=== PATIENT | female | born 1975 | race Caucasian/White ===

== ENCOUNTER 2016-06-14 11:06 | Emergency (ER) | payer MEDICAID | END 2016-06-14 13:32 | disposition home or self-care (01) | DX: E04.1 Nontoxic single thyroid nodule (principal); F17.200 Nicotine dependence, unspecified, uncomplicated ==

== ENCOUNTER 2016-07-30 11:59 | Outpatient (CLI) | payer MEDICAID ==
--- NOTE | 2016-07-30 14:54 | XRAY Report ---
THREE-VIEW CERVICAL SPINE: 07/30/2016 CLINICAL INDICATION: Pain. FINDINGS: AP, lateral, odontoid views of the cervical spine demonstrate mild degenerative disk and f acet disease, with disk space narrowing worst at C6-7. There is no evidence of fracture or subluxati on. The prevertebral soft tissues are unremarkable. IMPRESSION: MILD DEGENERATIVE CHANGES. JOB #: [id number] EXT JOB #:[id number]
--- NOTE | 2016-07-30 14:56 | XRAY Report ---
THREE-VIEW LUMBAR SPINE: 07/30/2016 CLINICAL INDICATION: Pain. FINDINGS: AP, lateral, coned-down views of the lumbar spine demonstrate dextroscoliosis, measuring 1 7 degrees between the pedicles of L1 and L4. There is no evidence of fracture. The disk spaces are preserved. IMPRESSION: MILD DEXTROSCOLIOSIS. NO EVIDENCE OF FRACTURE. JOB #: [id number] EXT JOB #:[id number]
--- NOTE | 2016-07-30 14:56 | XRAY Report ---
TWO-VIEW THORACIC SPINE: 07/30/2016 CLINICAL INDICATION: Back pain. FINDINGS: Frontal and lateral views of the thoracic spine demonstrate minimal S-shaped scoliosis. T here is no evidence of compression fracture. The disk spaces are preserved. IMPRESSION: MINIMAL S-SHAPED SCOLIOSIS. JOB #: [id number] EXT JOB #:[id number]
--- NOTE | 2016-07-30 18:36 | Ultrasound Report ---
THYROID ULTRASOUND: 07/30/2016 CLINICAL INDICATION: Palpable right thyroid nodule. TECHNIQUE: Real-time scanning was performed with outbound telemarketing representative static images obtained. FINDINGS: The right lobe measures 7.6 x 2.6 x 2.5 cm, and the left lobe measures 5.3 x 2.2 x 1.5 cm. The isthmus measures 2 mm. There are multiple confluent bilateral nodules. The palpable abnormali ty correlates with a hypoechoic nodule measuring approximately 4.3 x 2.8 x 2.1 cm. Multiple mixed ec hogenicity nodules, some with cystic components, are spread throughout both lobes. No adenopathy is appreciated. IMPRESSION: MULTINODULAR GOITER, WITH MULTIPLE CONFLUENT NODULES PRESENT. JOB #: [id number] EXT JOB #:[id number]
== END 2016-07-30 12:00 | disposition home or self-care (01) ==
LOC: DI 11:59
PROVIDERS: ATTEND Family Medicine
DX: E04.2 Nontoxic multinodular goiter (principal); M50.30 Other cervical disc degeneration, unspecified cervical region; M47.892 Other spondylosis, cervical region; M41.86 Other forms of scoliosis, lumbar region; M41.84 Other forms of scoliosis, thoracic region
CPT/HCPCS: 72040; 72070; 72100; 76536

== ENCOUNTER 2016-10-04 09:34 | Emergency (ER) | payer MEDICAID ==
[2016-10-04] MEDS ORDERED: IBUPROFEN 800 MG TABLET PO STA (10:09)
[2016-10-04] MEDS ORDERED: IBUPROFEN 800 MG TABLET PO ONE (10:25)
--- NOTE | 2016-10-04 10:42 | ED Physician Documentation ---
History of Present Illness - Stated complaint Stated Complaint: ANKLE PX - Chief complaint Chief Complaint: Ext Problem - History obtained from History obtained from: Patient - History of Present Illness Timing: Prior to arrival - Additonal information Additional information: Patient is a 41-year-old female who is otherwise healthy. She comes in with a complaint of right sided foot and ankle pain. The patient had an injury last night and woke up this morning with increased pain and difficulty walking on the affected right foot. She believes it was a twist type injury not a fall from height. She points to the calcaneus is being the area of injury. She has no proximal leg pain. The pain is worse with movement and better with rest. Review of systems: For pertinent positive and negatives in the review of systems please see the history of present illness, otherwise all other systems have been reviewed and are negative. Dragon disclaimer: Parts of this medical record were created using voice recognition technology. Because of the inherent limitations of this system, occasional same sounding word substitutions do occur and persist despite proofreading. Please read the document for context. Review of Systems Musculoskeletal: reports: Extremity pain, Joint pain, Pain with weight bearing. 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 - Present Medications Home Medications: Ambulatory Orders Medication Instructions Recorded Confirmed Ibuprofen 600 mg PO TID PRN #14 tablet 10/04/16 Tramadol HCl 50 mg PO Q8HR PRN #14 tablet 10/04/16 - Allergies Allergies/Adverse Reactions: Allergies Allergy/AdvReac Type Severity Reaction Status Date / Time cillins Allergy Unknown Uncoded 06/14/16 11:23 - Social History Does the pt smoke?: Yes Smoking Status: Current every day smoker Does the pt drink ETOH?: Yes Does the pt have substance abuse?: No - Immunizations Immunizations are current?: No Immunizations: TDAP >10years/unknown PD ED PE NORMAL - General General: Alert and oriented X 3, No acute distress, Well developed/nourished - HEENT HEENT: Atraumatic - Neck Neck: Supple, no meningeal sign - Cardiac Cardiac: RRR - Respiratory Respiratory: No respiratory distress, Clear bilaterally - Abdomen Abdomen: Normal bowel sounds - Extremities Extremities: Other (On examination the patient's right ankle and foot she has mild tenderness without discoloration bruising or focality of the right calcaneus. The patient's ankle and proximal lower extremity are all normal. Patient's midfoot and forefoot are palpated and are nontender) Results - Vitals Vitals: Vital Signs - 24 hr 10/04/16 09:43 Temperature 36.4 C L Heart Rate 76 Respiratory 18 Rate Blood Pressure 98/66 O2 Saturation 98 Oxygen O2 Source Room air PD MEDICAL DECISION MAKING - ED course Complexity details: reviewed old records, reviewed results ED course: Patient had isolated tenderness on the lateral aspect of the calcaneus. Based on the mechanism and physical exam I did not strongly suspect a occult calcaneus fracture. Plain films were done and are normal. Clinically the patient's foot other than the hindfoot and ankle are normal on exam. She is placed in a short leg splint for comfort crutches and will prescribe short course of pain medications as well as a note for off of work. I suspect she will do well. I did asked her to follow-up with her physician and if pain continues a calcaneus consider getting a additional x-ray in the future however my clinical suspicion for occult injury is very low. Disposition: To home Clinical impression: 1. Calcaneal contusion Departure - Departure Disposition: 01 Home, Self Care Clinical Impression: Pain in extremity, Contusion Condition: Good Instructions: Contusion Bone About Follow-Up: Donald Cabello MD [Primary Care Provider] - Prescriptions: Tramadol HCl 50 mg PO Q8HR PRN #14 tablet PRN Reason: Pain Ibuprofen 600 mg PO TID PRN #14 tablet PRN Reason: Pain Forms: Activity restrictions
--- NOTE | 2016-10-04 11:26 | XRAY Preliminary Report ---
Exam: XR Calcaneus RT IMPRESSION: Soft tissue swelling over the posterior inferior portion of the calcaneus without underly ing bone or joint abnormality. [facility] SITE ID: [id number]
--- NOTE | 2016-10-04 11:29 | XRAY Report ---
EXAM: RIGHT CALCANEUS RADIOGRAPHY, 2 VIEWS EXAM DATE: 10/04/2016 11:13 AM. CLINICAL HISTORY: Mis-step injury this morning with posterior osteo-calcaneus pain in a 41-year-old f emale COMPARISON: None. TECHNIQUE: Lateral and tangential views. FINDINGS: Bones: Normal. No fractures or bone lesions. Joints: Normal. No subluxations. Soft Tissues: Soft tissue swelling over the inferior posterior aspect of the calcaneus without soft t issue gas or foreign body. IMPRESSION: Soft tissue swelling over the posterior inferior portion of the calcaneus without underly ing bone or joint abnormality. [facility] Referring Provider Line: [phone] SITE ID: [id number]
[2016-10-04 12:27] VITALS: BP 112/52
== END 2016-10-04 12:24 | disposition home or self-care (01) ==
LOC: ED 09:34
DX: S90.31XA Contusion of right foot, initial encounter (principal); F17.200 Nicotine dependence, unspecified, uncomplicated; X50.1XXA Overexertion from prolonged static or awkward postures, initial encounter
CPT/HCPCS: 29515; 73650; 99283; A9270

== ENCOUNTER 2017-01-13 11:05 | Emergency (ER) | payer OTHER, MEDICAID ==
[2017-01-13 11:15] VITALS: BP 107/76
--- NOTE | 2017-01-13 12:43 | ED Physician Documentation ---
History of Present Illness - Stated complaint Stated Complaint: NEEDS WK RELEASE/L&I INJURY - Chief complaint Chief Complaint: General - History obtained from History obtained from: Patient - History of Present Illness Timing: How many weeks ago (1) Pain level max: 0 Pain level now: 0 - Additonal information Additional information: Patient is a 41-year-old female who sprained her left fifth toe approximately 1 week ago. States pain has now all resolved and she is feeling well. Able to perform all of her daily activities without any restrictions. Requested a note to return to work. 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 - Present Medications Home Medications: Ambulatory Orders Medication Instructions Recorded Confirmed Meloxicam [Mobic] 15 mg PO DAILY PRN #20 tablet 01/06/17 01/13/17 - Allergies Allergies/Adverse Reactions: Allergies Allergy/AdvReac Type Severity Reaction Status Date / Time cillins Allergy Unknown Uncoded 06/14/16 11:23 - Social History Does the pt smoke?: Yes Smoking Status: Current every day smoker Does the pt drink ETOH?: Yes Does the pt have substance abuse?: No - Immunizations Immunizations are current?: No Immunizations: TDAP >10years/unknown PD ED PE NORMAL - Vitals Vital signs reviewed: Yes - General General: Alert and oriented X 3, No acute distress - Derm Derm: Warm and dry - Extremities Extremities: Other (normal exam of the L foot. normal gait. NVI. normal skin) - Neuro Neuro: Alert and oriented X 3 Results - Vitals Vitals: Vital Signs - 24 hr 01/13/17 11:12 Temperature 36.8 C Heart Rate 80 Respiratory 18 Rate Blood Pressure 107/76 O2 Saturation 100 Oxygen O2 Source Room air PD MEDICAL DECISION MAKING - ED course Complexity details: considered differential, d/w patient ED course: Patient appears to have recovered from her toe sprain. We will released back to full duty work. I will follow-up with her doctor for further evaluation and care. Patient counseled regarding signs and symptoms for which I believe and urgent re-evaluation would be necessary. Patient with good understanding of and agreement to plan and is comfortable going home at this time This document was made in part using voice recognition software. While efforts are made to proofread this document, sound alike and grammatical errors may occur. Departure - Departure Disposition: 01 Home, Self Care Clinical Impression: Sprain of toe, fifth, left Qualifiers: Encounter type: subsequent encounter Qualified Code(s): S93.505D - Unspecified sprain of left lesser toe(s), subsequent encounter Condition: Good Follow-Up: Donald Cabello MD [Primary Care Provider] - As Needed Comments: Return if you worsen. Forms: Activity restrictions
== END 2017-01-13 12:47 | disposition home or self-care (01) ==
LOC: ED 11:05
DX: S93.505D Unspecified sprain of left lesser toe(s), subsequent encounter (principal); X58.XXXD Exposure to other specified factors, subsequent encounter; F17.200 Nicotine dependence, unspecified, uncomplicated
CPT/HCPCS: 99282; 99283

== ENCOUNTER 2017-08-14 13:56 | Outpatient (CLI) | payer MEDICAID | END 2017-08-14 13:57 | disposition critical access hospital (66) | LOC: EMS 13:56 | PROVIDERS: ATTEND Surgery | DX: R10.9 Unspecified abdominal pain (principal); R31.9 Hematuria, unspecified | CPT/HCPCS: A0425; A0429 ==

== ENCOUNTER 2017-08-14 14:15 | Emergency (ER) | payer MEDICAID ==
[2017-08-14 14:58] LABS: BASOPHILS % (AUTO) 0.9 %; EOSINOPHILS % (AUTO) 0.2 %; HGB - HEMOGLOBIN 13.2 g/dL (12.0-16.0); MEAN CORPUSCULAR HEMOGLOBIN 31.6 pg (27.0-31.0); MEAN CORPUSCULAR HGB CONC 32.8 g/dL (32.0-36.0); MEAN CORPUSCULAR VOLUME 96.5 fL (81.0-99.0); MEAN PLATELET VOLUME 7.5 fL (7.9-10.8); MONOCYTES % (AUTO) 14.9 %; PLT - PLATELET COUNT 364 10^3/uL (130-450); RED BLOOD COUNT 4.16 10^6/uL (4.20-5.40); RED CELL DISTRIBUTION WIDTH 13.9 % (12.0-15.0); WHITE BLOOD COUNT 18.8 x10^3/uL (4.8-10.8)
[2017-08-14 15:03] LABS: BILIRUBIN,URINE NEGATIVE (NEGATIVE); GLUCOSE, URINE (UA) NEGATIVE (NEGATIVE); KETONES,URINE (UA) NEGATIVE (NEGATIVE); LEUKOCYTE ESTERASE, URINE LARGE (NEGATIVE); NITRITE,URINE POSITIVE (NEGATIVE); OCCULT BLOOD,URINE SMALL (NEGATIVE); PROTEIN,URINE 30 mg/dL (NEGATIVE); UROBILINOGEN,URINE 0.2 (NORMAL) E.U./dL (NORMAL)
[2017-08-14 15:07] LABS: CLARITY,URINE CLOUDY (CLEAR); HCG UR QUAL NEGATIVE
[2017-08-14 15:08] LABS: ABNORMAL LYMPHS % (MANUAL) 0 %; BAND NEUTROPHILS % (MANUAL) 0 %
[2017-08-14 15:13] LABS: ALBUMIN 3.5 g/dL (3.2-5.5); ALBUMIN/GLOBULIN RATIO 0.8 (1.0-2.2); BILIRUBIN,TOTAL 0.4 mg/dL (0.2-1.0); CALCIUM 8.7 mg/dL (8.5-10.3); CREATININE 0.8 mg/dL (0.4-1.0); TOTAL PROTEIN 7.8 g/dL (6.7-8.2)
[2017-08-14 15:14] LABS: BACTERIA,URINE Rare /HPF (None Seen); RBC,URINE 0-5 /HPF (0-5); SQUAMOUS EPITHELIAL CELL,UR RARE Squamous (<= Few)
[2017-08-14 15:24] LABS: EOSINOPHILS # (MANUAL) 0.4 10^3/uL (0-0.7); LYMPHOCYTES % (MANUAL) 11 %; MONOCYTES # (MANUAL) 1.5 10^3/uL (0.0-1.0); NEUTROPHILS # (MANUAL) 13.9 10^3/uL (1.5-6.6); NEUTROPHILS % (MANUAL) 74 %
[2017-08-14 15:25] LABS: PLATELET ESTIMATE, MANUAL NORMAL (130-450,000) (NORMAL); PLATELET MORPHOLOGY NORMAL APPEARANCE (NORMAL); RBC MORPHOLOGY (MULTIPLE) NORMAL APPEARANCE (NORMAL)
[2017-08-14 15:26] LABS: DIFFERENTIAL COMMENT MANUAL DIFFERENTIAL
--- NOTE | 2017-08-14 15:34 | ED Physician Documentation ---
PD HPI ABD PAIN - Stated complaint Stated Complaint: FLANK PAIN - Chief complaint Chief Complaint: Abd Pain - History obtained from History obtained from: Patient - History of Present Illness Timing - onset: How many days ago (several days of lower abd pain radiating to right flank and now left as well. With nausea and vomiting, malaise. Has had a month of uterine bleeding as well, sometimes soaking a pad, but not consistently.) Timing - details: Gradual onset, Still present Quality: Cramping, Pain Location: RLQ, Suprapubic Radiation: Right flank Associated symptoms: Nausea, Dysuria, Vaginal bleeding. No: Fever, Diarrhea, Vaginal dc Similar symptoms before: Has not had sx before Recently seen: Not recently seen Review of Systems Constitutional: denies: Fever, Chills, Myalgias Nose: denies: Rhinorrhea / runny nose, Congestion Throat: denies: Sore throat Respiratory: denies: Cough GI: reports: Abdominal Pain, Nausea. denies: Vomiting, Diarrhea : reports: Dysuria, Frequency, Irregular menses (had been irregular and now having menstrual bleeding the past month.). 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 - Present Medications Home Medications: Ambulatory Orders Medication Instructions Recorded Confirmed Meloxicam [Mobic] 15 mg PO DAILY PRN #20 tablet 01/06/17 01/13/17 Cephalexin [Keflex] 500 mg PO QID #28 capsule 08/14/17 Medroxyprogesterone Acetate 5 mg PO DAILY #5 tablet 08/14/17 [Provera] Naproxen 375 mg PO BID #20 tablet 08/14/17 Ondansetron Odt [Zofran] 4 mg TL Q6H PRN #15 tablet 08/14/17 Tramadol HCl 50 mg PO Q6H PRN #20 tablet 08/14/17 - Allergies Allergies/Adverse Reactions: Allergies Allergy/AdvReac Type Severity Reaction Status Date / Time cillins Allergy Unknown Unknown Uncoded 08/14/17 16:14 - Social History Does the pt smoke?: Yes Smoking Status: Current every day smoker Does the pt drink ETOH?: Yes Does the pt have substance abuse?: No - Immunizations Immunizations are current?: No Immunizations: TDAP >10years/unknown PD ED PE NORMAL - Vitals Vital signs reviewed: Yes - General General: Alert and oriented X 3, Well developed/nourished - HEENT HEENT: Pharynx benign - Neck Neck: Supple, no meningeal sign, No adenopathy - Cardiac Cardiac: RRR, No murmur - Respiratory Respiratory: Clear bilaterally - Abdomen Abdomen: Soft, Non tender - Female Female : Deferred - Rectal Rectal: Deferred - Back Back: Other (right flank pain and tenderness.) - Derm Derm: Normal color, Warm and dry - Extremities Extremities: No deformity, No tenderness to palpate, Normal ROM s pain - Neuro Neuro: Alert and oriented X 3, No motor deficit, Normal speech Results - Vitals Vitals: Vital Signs - 24 hr 08/14/17 08/14/17 08/14/17 14:17 16:50 17:00 Temperature 37.0 C Heart Rate 110 H 88 100 Respiratory 16 16 16 Rate Blood Pressure 117/73 102/72 110/67 O2 Saturation 99 100 08/14/17 08/14/17 18:00 19:08 Temperature Heart Rate 99 90 Respiratory 16 18 Rate Blood Pressure 104/66 99/61 O2 Saturation 98 97 Oxygen O2 Source Room air - Labs Labs: Laboratory Tests 08/14/17 08/14/17 08/14/17 14:55 14:55 14:55 WBC 18.8 H RBC 4.16 L Hgb 13.2 Hct 40.2 MCV 96.5 MCH 31.6 H MCHC 32.8 RDW 13.9 Plt Count 364 MPV 7.5 L Neut # (Auto) Not Reportable Lymph # (Auto) Not Reportable Avery # (Auto) Not Reportable Eos # (Auto) Not Reportable Baso # (Auto) Not Reportable Absolute Nucleated RBC Not Reportable Total Counted 100 Band Neuts % (Manual) 0 Reactive Lymphs % (Man) 5 Abnorm Lymph % (Manual) 0 Nucleated RBC % Not Reportable Neutrophils # (Manual) 13.9 H Lymphocytes # (Manual) 3.0 Monocytes # (Manual) 1.5 H Eosinophils # (Manual) 0.4 Basophils # (Manual) 0.0 Differential Comment MANUAL DIFFERENTIAL Platelet Estimate NORMAL (130-450,000) Platelet Morphology NORMAL APPEARANCE RBC Morph Micro Appear NORMAL APPEARANCE Sodium 132 L Potassium 3.9 Chloride 95 L Carbon Dioxide 27 Anion Gap 10.0 BUN 12 Creatinine 0.8 Estimated GFR (MDRD) 79 L Glucose 109 H Calcium 8.7 Total Bilirubin 0.4 AST 27 ALT 51 Alkaline Phosphatase 54 Total Protein 7.8 Albumin 3.5 Globulin 4.3 H Albumin/Globulin Ratio 0.8 L Lipase 26 Urine Color YELLOW Urine Clarity CLOUDY Urine pH 6.0 Ur Specific Sparks <=1.005 Urine Protein 30 H Urine Glucose (UA) NEGATIVE Urine Ketones NEGATIVE Urine Occult Blood SMALL H Urine Nitrite POSITIVE H Urine Bilirubin NEGATIVE Urine Urobilinogen 0.2 (NORMAL) Ur Leukocyte Esterase LARGE H Urine RBC 0-5 Urine WBC >25 H Ur Squamous Epith Cells RARE Squamous Urine Bacteria Rare Ur Microscopic Review INDICATED Urine Culture Comments INDICATED Urine HCG, Qual NEGATIVE - Rads (name of study) pelvic U/S Radiology: Prelim report reviewed (small 8 mm polyp vs fibroid) PD MEDICAL DECISION MAKING - ED course Complexity details: reviewed results (fibroid appearing vs polyp on U/S. ), considered differential (main symptoms are pyelo, but has had vag bleeding for a month, so evaluate that with CBC and pelvic U/S as well. ), d/w patient - Sepsis Event Vital Signs: Vital Signs - 24 hr 08/14/17 08/14/17 08/14/17 14:17 16:50 17:00 Temperature 37.0 C Heart Rate 110 H 88 100 Respiratory 16 16 16 Rate Blood Pressure 117/73 102/72 110/67 O2 Saturation 99 100 08/14/17 08/14/17 18:00 19:08 Temperature Heart Rate 99 90 Respiratory 16 18 Rate Blood Pressure 104/66 99/61 O2 Saturation 98 97 Oxygen O2 Source Room air Departure - Departure Disposition: 01 Home, Self Care Clinical Impression: Pyelonephritis, Dysfunctional uterine bleeding Abdominal pain Qualifiers: Abdominal location: lower abdomen, unspecified Qualified Code(s): R10.30 - Lower abdominal pain, unspecified Vomiting Qualifiers: Vomiting type: unspecified Vomiting Intractability: non-intractable Nausea presence: with nausea Qualified Code(s): R11.2 - Nausea with vomiting, unspecified Condition: Stable Record reviewed to determine appropriate education?: Yes Instructions: ED Bleed Irregular Vaginal, ED Kidney Infec Female Follow-Up: Donald Cabello MD [Primary Care Provider] - [facility] [Provider Group] Prescriptions: Cephalexin [Keflex] 500 mg PO QID #28 capsule Medroxyprogesterone Acetate [Provera] 5 mg PO DAILY #5 tablet Naproxen 375 mg PO BID #20 tablet Ondansetron Odt [Zofran] 4 mg TL Q6H PRN #15 tablet PRN Reason: Nausea / Vomiting Tramadol HCl 50 mg PO Q6H PRN #20 tablet PRN Reason: Pain Comments: Small frequent fluids. You do have a kidney infection which is given you your back pain nausea and feeling ill. We will treat this with cephalexin antibiotic as directed. Use ondansetron if needed for nausea. Naproxen twice daily for pain and inflammation. Add tramadol if needed for pain. You are also having the prolonged uterine bleeding and will try to stop that with Provera hormone daily for the next 5 days. Follow-up with your primary care if not improving over the next few days. Regarding the vaginal bleeding, follow-up with women's health if you have recurring episodes or this does not improve over the next several days. Forms: Activity restrictions Discharge Date/Time: 08/14/17 19:51
[2017-08-14] MEDS ORDERED: KETOROLAC 60 MG/2 ML VIAL IVP STA (15:56)
[2017-08-14] MEDS ORDERED: SODIUM CHLORIDE 0.9% 1,000 ML IV ONE (15:56)
[2017-08-14] MEDS ORDERED: ONDANSETRON 4 MG/2 ML VIAL IVP STA (15:56)
[2017-08-14] MEDS ORDERED: cefTRIAXone 1 GM in SODIUM CHLORIDE 0.9% MINIBAG 100 ML IV STA (15:56)
[2017-08-14] MEDS ORDERED: MORPHINE 10 MG/ML VIAL IVP STA (15:57)
[2017-08-14 19:08] VITALS: BP 99/61
--- NOTE | 2017-08-14 19:37 | Ultrasound Report ---
Procedure Date: 08/14/2017 Accession Number: [id number] / [id number] Procedure: US - Pelvic w/Transvaginal CPT Code: FULL RESULT: EXAM: PELVIC ULTRASOUND. EXAM DATE: 08/14/2017 06:50 PM. CLINICAL HISTORY: Uterine bleeding and cramps for a month. COMPARISON: None. TECHNIQUE: Realtime transabdominal pelvic scan performed to identify the uterus and adnexa and as an overview of other pelvic structures, followed by transvaginal scan to provide greater detail of the uterus and adnexa, with static image documentation. FINDINGS: Uterus: 9.4 x 5.6 x 4.7 cm, volume 129.3 cc. Anteverted position. Normal overall size and echotexture. Masses: Anterior fundal intramural fibroid measuring 1 cm in diameter. There is a hyperechoic subendometrial focus anteriorly measuring 8 x 7 mm. Endometrium: 6.6 mm. Normal. Cervix: Unremarkable. Right Ovary: 2.9 x 2.5 x 1.8 cm, volume 6.8 cc. Contains scattered echogenic foci of doubtful clinical significance. Normal Doppler flow seen. Left Ovary: 3.1 x 1.6 x 1.9 cm, volume 4.9 cc. Contains several echogenic foci. Normal Doppler flow. No suspicious mass. Free Fluid: There is a small amount of free fluid within the pelvis considered physiologic. Other: None. IMPRESSION: 1. There is an 8 mm polyp versus submucosal fibroid at the anterior fundal aspect of the endometrium. 2. Unremarkable ovaries. [facility]
== END 2017-08-14 19:51 | disposition home or self-care (01) ==
LOC: EDUNIT# → ED 14:15
DX: N12 Tubulo-interstitial nephritis, not specified as acute or chronic (principal); N93.8 Other specified abnormal uterine and vaginal bleeding; R11.2 Nausea with vomiting, unspecified; F17.200 Nicotine dependence, unspecified, uncomplicated
CPT/HCPCS: 36415; 76830; 76856; 80053; 81001; 81025; 83690; 85025; 87086; 87181; 96361; 96365; 96375; 99283; 99284; A9270; 81003

== ENCOUNTER 2018-04-02 12:57 | Emergency (ER) | payer MEDICAID ==
--- NOTE | 2018-04-02 14:32 | ED Physician Documentation ---
PD HPI URI - Stated complaint Stated Complaint: COUGH/R THUMB INJ - Chief complaint Chief Complaint: Resp - History obtained from History obtained from: Patient, Family - History of Present Illness Timing - onset: How many days ago (3) Timing duration: Days (3) Timing details: Gradual onset, Still present Associated symptoms: Fever, Nasal congestion, Rhinorrhea, Dry cough, Other (swelling redness to thumb) Contributing factors: Sick contact (son sick with OM and URI) Improves by: Rest, Medication Similar symptoms before: Diagnosis (bronchitis) Recently seen: Not recently seen - Additional information Additional information: Previously well 42-year-old female is developed a cough and congestion similar to what her son has had over the past 3 days she has had a bit of a fever with this she has not had a sore throat or ear pain or shortness of breath. She has an area to her right thumb over the dorsum that was swollen and erythematous and extremely tender she was able to pop this and drain it and it continues to be red and tender but is improving. Review of Systems Constitutional: reports: Fever Eyes: denies: Decreased vision Ears: denies: Ear pain Nose: reports: Rhinorrhea / runny nose, Congestion Throat: denies: Sore throat Cardiac: denies: Chest pain / pressure, Palpitations Respiratory: reports: Cough. denies: Dyspnea GI: denies: Vomiting Skin: reports: Lesions Musculoskeletal: reports: Extremity pain. 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 04/02/18 - Allergies Allergies/Adverse Reactions: Allergies Allergy/AdvReac Type Severity Reaction Status Date / Time cillins Allergy Unknown Unknown Uncoded 08/14/17 16:14 - Social History Does the pt smoke?: Yes Smoking Status: Current every day smoker Does the pt drink ETOH?: Yes Does the pt have substance abuse?: No - Immunizations Immunizations are current?: No Immunizations: TDAP >10years/unknown PD ED PE NORMAL - Vitals Vital signs reviewed: Yes (hypertensive mild) - General General: Alert and oriented X 3, No acute distress, Well developed/nourished - HEENT HEENT: Atraumatic, PERRL, EOMI, Ears normal, Moist mucous membranes, Pharynx benign, Dentition benign - Neck Neck: Supple, no meningeal sign, No bony TTP - Cardiac Cardiac: RRR, No murmur - Respiratory Respiratory: No respiratory distress, Clear bilaterally - Abdomen Abdomen: Soft, Non tender - Back Back: No CVA TTP, No spinal TTP - Derm Derm: Normal color, Warm and dry, No rash - Extremities Extremities: No deformity, No edema, Other (over the dorsum of the right thumb there is erythems and escar over the cuticle. The paronychia has opened and drained and appears to be healing. There is no cellulitis extending up the thumb and no lymphangitic streaking. ) - Neuro Neuro: Alert and oriented X 3, physical ther 2-12 intact, No motor deficit, No sensory deficit, Normal speech Eye Opening: Spontaneous Motor: Obeys Commands Verbal: Oriented GCS Score: 15 - Psych Psych: Normal mood, Normal affect Results - Vitals Vitals: Vital Signs - 24 hr 04/02/18 13:02 Temperature 35.7 C L Heart Rate 84 Respiratory 18 Rate Blood Pressure 120/82 H O2 Saturation 100 Oxygen O2 Source Room air - Labs Labs: Laboratory Tests 04/02/18 13:10 Group A Strep Rapid Negative PD MEDICAL DECISION MAKING - ED course Complexity details: considered differential, d/w patient, d/w family ED course: 42-year-old female presents with URI symptoms and a paronychia that has been drained by her. Paronychia looks like it is improving we will place her on some Bactroban for that and her examination is otherwise unremarkable and she is diagnosed with a viral URI and given a dose of dexamethasone. Departure - Departure Disposition: 01 Home, Self Care Clinical Impression: Paronychia, Viral URI with cough Condition: Stable Instructions: ED URI Viral, ED Fingernail Infec Follow-Up: Donald Cabello MD [Primary Care Provider] - Prescriptions: Mupirocin Calcium [Bactroban] 1 gm TP BID #15 cream..g.
[2018-04-02 14:33] VITALS: BP 116/80
[2018-04-02] MEDS ORDERED: DEXAMETHASONE 10 MG/ML VIAL PO STA (14:37)
== END 2018-04-02 14:43 | disposition home or self-care (01) ==
LOC: ED 12:57
DX: L03.011 Cellulitis of right finger (principal); J06.9 Acute upper respiratory infection, unspecified; B34.9 Viral infection, unspecified; F17.200 Nicotine dependence, unspecified, uncomplicated
CPT/HCPCS: 87070; 87430; 99283